=== PATIENT | female | born 1950 | race Caucasian/White ===

== ENCOUNTER → 2021-01-18 | Outpatient (CLI) | payer MEDICARE, OTHER ==
[~2021-01-18] MED LIST: VALIUM10 MG PO
== END ==
LOC: HEART 5 14:01
DX: R00.2 Palpitations (principal); I07.1 Rheumatic tricuspid insufficiency
CPT/HCPCS: 93306

== ENCOUNTER → 2021-09-19 | Outpatient (CLI) | payer MEDICARE, OTHER | LOC: KOH-I 09-18 13:30 | DX: M79.604 Pain in right leg (principal); S89.81XA Other specified injuries of right lower leg, initial encounter; X58.XXXA Exposure to other specified factors, initial encounter; M17.11 Unilateral primary osteoarthritis, right knee; R93.6 Abnormal findings on diagnostic imaging of limbs; M85.651 Other cyst of bone, right thigh; M85.661 Other cyst of bone, right lower leg; M71.21 Synovial cyst of popliteal space [Baker], right knee | CPT/HCPCS: 73700; 93971 ==

== ENCOUNTER 2021-10-07 18:32 | Emergency (ER) | payer MEDICARE, OTHER | END 2021-10-07 20:05 | disposition home or self-care (01) | LOC: ER1 18:32 | DX: M54.41 Lumbago with sciatica, right side (principal); G89.29 Other chronic pain; E11.9 Type 2 diabetes mellitus without complications; I10 Essential (primary) hypertension | CPT/HCPCS: 96372; 99283; J2270 ==

== ENCOUNTER → 2022-08-07 | Outpatient (CLI) | payer MEDICARE | LOC: RAD 17:01 | DX: M16.0 Bilateral primary osteoarthritis of hip (principal); M21.952 Unspecified acquired deformity of left thigh; Z96.642 Presence of left artificial hip joint; M17.12 Unilateral primary osteoarthritis, left knee; M85.80 Other specified disorders of bone density and structure, unspecified site; M51.36 Other intervertebral disc degeneration, lumbar region; M43.8X6 Other specified deforming dorsopathies, lumbar region | CPT/HCPCS: 73522 ==